=== PATIENT | female | born 1940 ===

== ENCOUNTER → 2020-08-20 22:31 | Outpatient (CLI) | payer MEDICARE ==
[2020-08-21 02:24] LABS: ANION GAP 19.2 mmol/L (8-16); BILIRUBIN - TOTAL 0.66 mg/dL (0.2-1.3); CALCIUM 7.9 mg/dL (8.5-10.1); CARBON DIOXIDE 22.1 mmol/L (21.0-32.0); POTASSIUM - SERUM 3.3 mmol/L (3.5-5.1); PROTEIN - SERUM 5.6 g/dL (6.4-8.2)
[2020-08-21 02:27] LABS: BASOPHILS 1.5 % (0-2); EOSINOPHILS 0.2 % (0-7); HEMATOCRIT 32.2 % (36.0-48.0); LYMPHOCYTES 7.9 % (15-50); MCH 35.7 pg (26.0-34.0); MCHC 34.2 g/dL (31.0-37.0); MCV 104.5 fL (80.0-100.0); MEAN PLATELET VOLUME 10.2 fL (7.4-10.4); MONOCYTES 7.7 % (2-11); NEUTROPHILS 82.7 % (40-80); PLATELET COUNT 200 10x3/uL (130-400); RBC 3.08 10x6/uL (4.00-5.40); RDW 19.5 % (11.5-14.5); WBC 7.6 10x3/uL (4.8-10.8)
== END | disposition home or self-care (01) ==
LOC: D.LABREF 22:31
PROVIDERS: ATTEND Dentist Oral and Maxillofacial Surgery
DX: M87.180 Osteonecrosis due to drugs, jaw (principal)

== ENCOUNTER → 2020-08-27 16:45 | Outpatient (CLI) | payer MEDICARE ==
[2020-08-27 18:15] LABS: BASOPHILS 0.4 % (0-2); EOSINOPHILS 3.1 % (0-7); HEMATOCRIT 31.6 % (36.0-48.0); HEMOGLOBIN 10.5 g/dL (12-16); IMMATURE GRANULOCYTES 1.3 % (0-5); LYMPHOCYTE ABS# 0.41 10x3/uL (1.18-3.74); MCH 34.4 pg (26.0-34.0); MCHC 33.2 g/dL (31.0-37.0); MCV 103.6 fL (80.0-100.0); MEAN PLATELET VOLUME 11.8 fL (7.4-10.4); MONOCYTES 11.9 % (2-11); NEUTROPHIL ABS# 3.38 10x3/uL (1.56-6.13); NEUTROPHILS 74.3 % (40-80); RBC 3.05 10x6/uL (4.00-5.40); RDW 17.6 % (11.5-14.5); WBC 4.6 10x3/uL (4.8-10.8)
[2020-08-27 18:18] LABS: PLATELET COUNT 259 10x3/uL (130-400)
[2020-08-27 18:28] LABS: ALBUMIN 2.9 g/dL (3.4-5.0); ANION GAP 12.2 mmol/L (8-16); BILIRUBIN - TOTAL 0.57 mg/dL (0.2-1.3); CALCIUM 7.7 mg/dL (8.5-10.1); CARBON DIOXIDE 29.4 mmol/L (21.0-32.0); CREATININE - SERUM 0.8 mg/dL (0.6-1.3); PROTEIN - SERUM 5.6 g/dL (6.4-8.2)
[2020-08-27 18:44] LABS: POTASSIUM - SERUM 2.6 mmol/L (3.5-5.1)
== END | disposition home or self-care (01) ==
LOC: D.LABREF 16:45
PROVIDERS: ATTEND Internal Medicine Medical Oncology
DX: M87.10 Osteonecrosis due to drugs, unspecified bone (principal)

== ENCOUNTER → 2020-09-10 20:14 | Outpatient (CLI) | payer MEDICARE ==
[2020-09-10 20:38] LABS: ALBUMIN 3.2 g/dL (3.4-5.0); ANION GAP 10.3 mmol/L (8-16); BILIRUBIN - TOTAL 0.48 mg/dL (0.2-1.3); CALCIUM 8.7 mg/dL (8.5-10.1); CARBON DIOXIDE 29.4 mmol/L (21.0-32.0); CREATININE - SERUM 0.9 mg/dL (0.6-1.3); PROTEIN - SERUM 5.9 g/dL (6.4-8.2)
[2020-09-10 20:39] LABS: BASOPHILS 1.8 % (0-2); EOSINOPHILS 3.5 % (0-7); HEMATOCRIT 31.1 % (36.0-48.0); HEMOGLOBIN 10.6 g/dL (12-16); LYMPHOCYTES 11.4 % (15-50); MCH 35.6 pg (26.0-34.0); MCHC 34.2 g/dL (31.0-37.0); MCV 104.3 fL (80.0-100.0); MEAN PLATELET VOLUME 9.6 fL (7.4-10.4); MONOCYTES 7.5 % (2-11); NEUTROPHILS 75.8 % (40-80); PLATELET COUNT 239 10x3/uL (130-400); RBC 2.99 10x6/uL (4.00-5.40); WBC 4.3 10x3/uL (4.8-10.8)
[2020-09-10 21:26] LABS: POTASSIUM - SERUM 2.7 mmol/L (3.5-5.1)
== END | disposition home or self-care (01) ==
LOC: D.LABREF 20:14
PROVIDERS: ATTEND Internal Medicine Medical Oncology
DX: M87.180 Osteonecrosis due to drugs, jaw (principal)